=== PATIENT | female | born 1960 | race African-American/Black ===

== ENCOUNTER 2018-05-14 23:41 | Emergency (ER) | payer MEDICAID ==
[~2018-05-14] VITALS: Ht 157.5 cm; Wt 113.0 kg
[2018-05-15] MEDS ORDERED: ONDANSETRON HCL 4MG/2ML INJ IV STA (00:53)
[2018-05-15] MEDS ORDERED: MORPHINE SULFATE 4 MG/ML CPJ (NOT FOR IM USE) IV STA (00:53)
[2018-05-15] MEDS ORDERED: MORPHINE SULFATE 2 MG/ML CPJ (NOT FOR IM USE) IV SCH (01:09)
[2018-05-15 01:34] LABS: BASOPHILS % 0.5 % (0.0-2.0); EOSINOPHILS % 0.8 % (0.0-5.0); HEMATOCRIT. 43.7 % (36.0-48.0); HEMOGLOBIN. 14.4 g/dL (12.0-16.0); MEAN CORPUSCULAR HEMOGLOBIN 29.1 pg (28.0-32.0); MEAN CORPUSCULAR VOLUME 88.2 fL (81.0-99.0); MEAN PLATELET VOLUME 7.2 fl (7.4-10.4); MONOCYTES % 7.4 % (2.0-8.0); NEUTROPHILS % 62.3 % (40.0-76.0); PLATELET 348 x1000/uL (130-400); RED BLOOD CELL COUNT 4.96 mill/uL (4.2-5.4); RED CELL DISTRIBUTION WIDTH 15.5 % (11.6-14.6)
[2018-05-15 01:41] LABS: CHLORIDE 111 mEq/L (98-107)
[2018-05-15] MEDS ORDERED: MORPHINE SULFATE 2 MG/ML CPJ (NOT FOR IM USE) IV ONE (04:00)
[2018-05-15] MEDS ORDERED: SODIUM CHLORIDE 0.9% 1,000 ML IV ONE (04:07)
[2018-05-15] MEDS ORDERED: PROPOFOL 200MG/20ML VIAL IV ONE (04:15)
[2018-05-15] MEDS ORDERED: ONDANSETRON HCL 4MG/2ML INJ IV ONE (04:15)
[2018-05-15] MEDS ORDERED: HYDROMORPHONE HCL/PF 2MG/ML CPJ IV ONE (04:15)
[2018-05-15] MEDS ORDERED: IOHEXOL-350 100 ML BOTTLE ONE (07:25)
[2018-05-15] MEDS ORDERED: MORPHINE SULFATE 4 MG/ML CPJ (NOT FOR IM USE) IV ONE (10:00)
[2018-05-15] MEDS ORDERED: MORPHINE SULFATE 10 MG/ML CPJ IV NR (11:00)
[2018-05-15 11:49] VITALS: BP 138/62
== END 2018-05-15 12:09 | disposition short-term general hospital (02) ==
LOC: ER 23:41
DX: S82.292A Other fracture of shaft of left tibia, initial encounter for closed fracture (principal); R51 Headache; M25.552 Pain in left hip; M54.2 Cervicalgia; M54.89 Other dorsalgia; Y93.01 Activity, walking, marching and hiking; W01.0XXA Fall on same level from slipping, tripping and stumbling without subsequent striking against object, initial encounter; Y92.480 Sidewalk as the place of occurrence of the external cause
CPT/HCPCS: 29505; 36415; 70450; 72070; 72100; 72125; 73502; 73560; 73706; 80053; 85025; 93005; 96374; 96375; 96376; 99285; J1170; J2270; J2405; J7030; Q9967; J2704; L1830